=== PATIENT | female | born 1955 ===

== ENCOUNTER → 2019-03-29 | Outpatient (REF) | payer BC ==
[2019-04-02 00:08] LABS: HPV HYBRID CAPTURE II Negative (Negative)
== END ==
LOC: M LAB LCGH 14:10
PROVIDERS: ATTEND Family Medicine
DX: Z12.4 Encounter for screening for malignant neoplasm of cervix (principal)
CPT/HCPCS: 87624; G0123

== ENCOUNTER → 2019-04-06 | Outpatient (REF) | LOC: M LAB LCGH 11:58 | PROVIDERS: ATTEND Obstetrics & Gynecology | DX: R87.612 Low grade squamous intraepithelial lesion on cytologic smear of cervix (LGSIL) (principal); N87.0 Mild cervical dysplasia ==